=== PATIENT | female | born 1985 | race Caucasian/White ===

== ENCOUNTER 2019-05-20 08:43 | Inpatient (IN) | payer MEDICAID ==
[~2019-05-20] VITALS: Ht 154.9 cm; Wt 87.1 kg
[2019-05-20] MEDS ORDERED: SODIUM CHLORIDE 0.9% 1,000 ML IV ONE (10:16)
[2019-05-20] MEDS ORDERED: KETOROLAC 30MG/ML VIAL IV STA (10:16)
[2019-05-20] MEDS ORDERED: ONDANSETRON HCL 4MG/2ML INJ IV STA ×2 (10:16→13:09)
[2019-05-20 10:47] LABS: CLARITY URINE TURBID (CLEAR); COLOR URINE ORANGE (YELLOW); KETONES URINE NEGATIVE (NEGATIVE); LEUKOCYTE ESTERASE URINE 1+ (NEGATIVE); NITRITE URINE NEGATIVE (NEGATIVE); OCCULT BLOOD URINE 3+ (NEGATIVE); PROTEIN URINE 1+ (NEGATIVE); SPECIFIC GRAVITY URINE 1.023 (1.005-1.030); UROBILINOGEN URINE 0.2 E.U./dL (0.2-1.0)
[2019-05-20 11:17] LABS: BASOPHILS % 0.3 % (0.0-2.0); EOSINOPHILS % 0.2 % (0.0-5.0); HEMATOCRIT. 40.5 % (36.0-48.0); HEMOGLOBIN. 13.9 g/dL (12.0-16.0); MEAN CORPUSCULAR HEMOGLOBIN 31.6 pg (28.0-32.0); MEAN CORPUSCULAR VOLUME 92.4 fL (81.0-99.0); MEAN PLATELET VOLUME 9.2 fl (7.4-10.4); MONOCYTES % 3.3 % (2.0-8.0); NEUTROPHILS % 84.2 % (40.0-76.0); PLATELET 243 x1000/uL (130-400); RED BLOOD CELL COUNT 4.39 mill/uL (4.2-5.4); RED CELL DISTRIBUTION WIDTH 13.3 % (11.6-14.6)
[2019-05-20 11:18] LABS: CHLORIDE 110 mEq/L (98-107)
[2019-05-20] MEDS ORDERED: MORPHINE SULFATE 4 MG/ML CPJ (NOT FOR IM USE) IV STA (13:09)
[2019-05-20] MEDS ORDERED: CEFTRIAXONE 1 G PREMIX 50 ML IV ONE (14:15)
[2019-05-20] MEDS: SODIUM CHLORIDE 0.9% 1,000 ML IV SCH (16:00)
[2019-05-20 16:30] LABS: HCG SCREEN NEGATIVE
[2019-05-20] MEDS: ONDANSETRON HCL 4MG/2ML INJ IV PRN (17:38)
[2019-05-20] MEDS: KETOROLAC 30MG/ML VIAL IV PRN (17:38)
[2019-05-20] MEDS ORDERED: LEVOFLOXACIN 500MG PREMIX 100 ML IV SCH ×2 (17:41→23:00)
[2019-05-20 20:00] VITALS: BP 125/80
[2019-05-20] MEDS: ACETAMINOPHEN 325MG TABLET PO PRN (21:17)
[2019-05-20 22:01] VITALS: BP 126/78
[2019-05-21] VITALS: BP 117/70
[2019-05-21] MEDS: KETOROLAC 30MG/ML VIAL IV PRN ×3 (00:03→17:19)
[2019-05-21] MEDS: SODIUM CHLORIDE 0.9% 1,000 ML IV SCH ×3 (02:35→21:23)
[2019-05-21] MEDS: ONDANSETRON HCL 4MG/2ML INJ IV PRN (02:44)
[2019-05-21 04:00] VITALS: BP 114/58
[2019-05-21] MEDS: ACETAMINOPHEN 325MG TABLET PO PRN ×2 (04:43→22:42)
[2019-05-21 07:16] LABS: BASOPHILS % 0.1 % (0.0-2.0); EOSINOPHILS % 0.9 % (0.0-5.0); HEMATOCRIT. 34.2 % (36.0-48.0); HEMOGLOBIN. 11.8 g/dL (12.0-16.0); LYMPHOCYTES % 21.8 % (20.0-50.0); MEAN CORPUSCULAR HEMOGLOBIN 31.7 pg (28.0-32.0); MEAN CORPUSCULAR VOLUME 91.9 fL (81.0-99.0); MEAN PLATELET VOLUME 8.8 fl (7.4-10.4); MONOCYTES % 9.6 % (2.0-8.0); NEUTROPHILS % 67.6 % (40.0-76.0); PLATELET 234 x1000/uL (130-400); RED BLOOD CELL COUNT 3.72 mill/uL (4.2-5.4); RED CELL DISTRIBUTION WIDTH 13.1 % (11.6-14.6)
[2019-05-21 08:00] VITALS: BP 119/83
[2019-05-21] MEDS: TAMSULOSIN HCL 0.4MG SR CAPSULE PO SCH (13:16)
[2019-05-21 15:38] VITALS: BP 121/78
[2019-05-21] MEDS ORDERED: LEVOFLOXACIN 500MG PREMIX 100 ML IV SCH (18:00)
[2019-05-21 20:00] VITALS: BP 123/73
[2019-05-22] VITALS: BP 102/53
[2019-05-22 04:00] VITALS: BP 109/58
[2019-05-22] MEDS ORDERED: THROAT LOZENGES-BENZOCAINE/MENTH/CETYLPYRD CL LOZENGES MM PRN (06:00)
[2019-05-22] MEDS: KETOROLAC 30MG/ML VIAL IV PRN (06:47)
[2019-05-22 08:00] VITALS: BP 124/76
[2019-05-22] MEDS: SODIUM CHLORIDE 0.9% 1,000 ML IV SCH (08:54)
[2019-05-22] MEDS: TAMSULOSIN HCL 0.4MG SR CAPSULE PO SCH (09:15)
[2019-05-22 10:40] VITALS: BP 124/76
== END 2019-05-22 11:15 | disposition home or self-care (01) | DRG 463 ==
LOC: ER 08:43 → 6EST 15:05 → ENRESERV 17:22
PROVIDERS: ADMIT Internal Medicine; ATTEND Internal Medicine
DX: N39.0 Urinary tract infection, site not specified (principal); E87.8 Other disorders of electrolyte and fluid balance, not elsewhere classified; N20.1 Calculus of ureter; N20.9 Urinary calculus, unspecified; E66.9 Obesity, unspecified; Z87.442 Personal history of urinary calculi; Z68.36 Body mass index [BMI] 36.0-36.9, adult; Z88.1 Allergy status to other antibiotic agents; Z71.3 Dietary counseling and surveillance
CPT/HCPCS: 36415; 74176; 80048; 81003; 81025; 84703; 93970; 96374; 96375; 99291; J0696; J1885; J1956; J2270; J2405; J7030